=== PATIENT | female | born 1975 | race Caucasian/White ===

== ENCOUNTER 2023-11-09 09:53 | Outpatient (REF) | payer MEDICAID, SELFPAY ==
[2023-11-09 14:58] LABS: Alanine Aminotransferase 11 U/L (0-31); Alkaline Phosphatase 61 U/L (39-117); Aspartate Amino Transferase 18 U/L (5-31); Bilirubin Direct 0.1 mg/dL (0.0-0.5); Bilirubin Total 0.4 mg/dL (0.0-1.0); Total Protein 7.2 g/dL (6.5-8.0)
== END 2023-11-09 09:54 | disposition home or self-care (01) ==
LOC: HO.CHCLDS 09:53
PROVIDERS: Visit Provider Family Medicine
DX: F11.20 Opioid dependence, uncomplicated (principal)
CPT/HCPCS: 36415; 80076

== ENCOUNTER 2024-01-07 09:39 | Outpatient (REF) | payer MEDICAID, SELFPAY ==
[2024-01-07 16:26] LABS: Anion Gap 10 (12-20); Blood Urea Nitrogen 9 mg/dL (9-16); Calcium 9.1 mg/dL (8.4-10.2); Carbon Dioxide 28 mmol/L (22-29); Chloride 104 mmol/L (96-108); Cholesterol 169 mg/dL (<200); Estimated Glomerular Filt Rate > 60; Glucose Random 124 mg/dL (60-115); HDL Cholesterol 56 mg/dL (>40); LDL Cholesterol Calculated 82 mg/dL (<100); Potassium 4.1 mmol/L (3.3-5.1); Sodium 138 mmol/L (135-145); Triglycerides 158 mg/dL (<150)
== END 2024-01-07 09:40 | disposition home or self-care (01) ==
LOC: HO.CHCLDS 09:39
PROVIDERS: Visit Provider Student in an Organized Health Care Education/Training Program
DX: F32.A Depression, unspecified (principal)
CPT/HCPCS: 36415; 80048; 80061